=== PATIENT | female | born 1945 | race Caucasian/White ===

== ENCOUNTER → 2017-12-05 | Outpatient (REF) | payer MEDICARE | LOC: M LAB REF 17:29 | DX: E83.52 Hypercalcemia (principal) | CPT/HCPCS: 83970 ==

== ENCOUNTER → 2018-11-13 | Outpatient (REF) | payer MEDICARE ==
[~2018-11-13] MED LIST: ALBU17IN INH; ASCO25TA PO; ASPI1TAB PO; ATOR1TAB19 PO; BIOT50004 PO; CALCTAB6 PO; CENTTAB47 PO; CHLO25TA GT; CHLO25TA PO; FLUO20CA8 PO; HYDR25TAB PO; KRIL1000 PO; OSTETAB3 PO; SALI0.652; VENTAER INH; VITA500T PO; VITATAB11 PO; ZYRT10CA PO
== END ==
LOC: M LAB REF 13:45
PROVIDERS: ATTEND Otolaryngology
DX: D10.5 Benign neoplasm of other parts of oropharynx (principal)

== ENCOUNTER 2018-11-18 08:53 | Day surgery (SDC) | payer MEDICARE ==
[~2018-11-18] VITALS: Ht 172.7 cm; Wt 98.0 kg
[2018-11-18] MEDS ORDERED: NS 1,000 ML IV ONE (09:30)
[2018-11-18] MEDS ORDERED: PROPOFOL 500 MG/50 ML VIAL As Ordered ONE (10:26)
[2018-11-18] MEDS ORDERED: LIDOCAINE 2% INJ 100 MG/5 ML SDV (FOR ANES.) As Ordered ONE (10:26)
--- NOTE | 2018-11-18 10:29 | ROOR ---
Patient Name: Alexandra Paredes Procedure Date: 11/18/2018 10:06 AM Date of : 1945 Age: 73 Room: [facility] Gender: Female Note Status: Finalized Procedure: Colonoscopy Indications: High risk colon cancer surveillance: Personal history of colonic polyps, Last colonoscopy: September 2015 Providers: Andrew HENNESSY MD Referring MD: DHAVAL GRYA NP Requesting Provider: Medicines: Monitored Anesthesia Care Complications: No immediate complications. Procedure: Pre-Anesthesia Assessment: - The heart rate, respiratory rate, oxygen saturations, blood pressure, adequacy of pulmonary ventilation, and response to care were monitored throughout the procedure. The Colonoscope was introduced through the anus and advanced to the cecum, identified by appendiceal orifice and ileocecal valve. The colonoscopy was performed without difficulty. The patient tolerated the procedure well. The quality of the bowel preparation was good. Findings: The perianal and digital rectal examinations were normal. Three semi-sessile polyps were found in the splenic flexure and ascending colon. The polyps were 4 to 10 mm in size. These polyps were removed with a cold snare. Resection and retrieval were complete. Multiple medium-mouthed diverticula were found in the sigmoid colon. Small Internal Hemorrhoids. The exam was otherwise without abnormality on direct and retroflexion views. Impression: - Three 4 to 10 mm polyps at the splenic flexure and in the ascending colon, removed with a cold snare. Resected and retrieved. - Diverticulosis in the sigmoid colon. - Small Internal Hemorrhoids. - The examination was otherwise normal on direct and retroflexion views. Recommendation: - Repeat colonoscopy in 3 years for surveillance. Andrew Hennessy MD Andrew HENNESSY MD 11/18/2018 10:28:41 AM This report has been signed electronically. Number of Addenda: 0 Note Initiated On: 11/18/2018 10:06 AM Estimated Blood Loss: Estimated blood loss: none.
[2018-11-18 10:45] VITALS: BP 141/87
== END 2018-11-18 10:57 | disposition home or self-care (01) ==
LOC: M OPP 08:53
PROVIDERS: ATTEND Internal Medicine Gastroenterology
DX: D12.3 Benign neoplasm of transverse colon (principal); D12.2 Benign neoplasm of ascending colon; K57.30 Diverticulosis of large intestine without perforation or abscess without bleeding; K64.8 Other hemorrhoids; Z86.010 Personal history of colon polyps

== ENCOUNTER → 2021-11-24 | Outpatient (CLI) | payer MEDICARE ==
[~2021-11-24] MED LIST changes: +ACET650T61 PO; +ASCO250T20 PO; -ASCO25TA PO; -ASPI1TAB PO; +ASPI81TA26 PO; +CALC600T63 PO; -CALCTAB6 PO; +CHLO125TA PO; -CHLO25TA GT; +FLUO-96 PO; -FLUO20CA8 PO; +FLUO40CA PO; +HYDR-2541 PO; -HYDR25TAB PO; +LISI5TAB11 PO; +MULT-40 PO; +VITA-243 PO; -VITA500T PO; +VITATAB73 PO; +ZYRT10TA12 PO
== END ==
LOC: M LABSMTC 10:54
PROVIDERS: ATTEND Anesthesiology
DX: Z01.812 Encounter for preprocedural laboratory examination (principal); Z20.822 Contact with and (suspected) exposure to COVID-19

== ENCOUNTER 2021-11-29 08:02 | Day surgery (SDC) | payer MEDICARE ==
[~2021-11-29] VITALS: Ht 172.7 cm; Wt 97.1 kg
[~2021-11-29 08:02] MED LIST changes: +NS 1,000 ML IV ONE
[2021-11-29] MEDS ORDERED: propofoL 200 MG/20 ML VIAL As Ordered ONE ×2 (08:33→09:40)
[2021-11-29] MEDS ORDERED: LIDOCAINE 2% 100MG/5ML SDV (FOR ANES.) As Ordered ONE (08:33)
[2021-11-29] MEDS ORDERED: ESMOLOL INJ 100MG/10ML VIAL As Ordered ONE (09:17)
[2021-11-29] MEDS ORDERED: PHENYLephrine 500MCG 5ML (100MCG/ML) SYRINGE As Ordered ONE (09:47)
[2021-11-29 10:13] VITALS: BP 128/83
== END 2021-11-29 10:26 | disposition home or self-care (01) ==
LOC: M OPP 08:02
PROVIDERS: ATTEND Internal Medicine Gastroenterology
DX: D12.3 Benign neoplasm of transverse colon (principal); D12.0 Benign neoplasm of cecum; K57.30 Diverticulosis of large intestine without perforation or abscess without bleeding; Z86.010 Personal history of colon polyps
CPT/HCPCS: 45385; 88305; J2370

== ENCOUNTER → 2022-10-19 | Outpatient (CLI) | payer MEDICARE ==
[~2022-10-19] MED LIST changes: +E-Z-GAS II EFFERVESCENT PACKET (SODIUM BICARB./CITRIC ACID/SIMETHICONE) As Ordered ONE; +E-Z-HD 98% w/w 340GM SUSP BTL As Ordered ONE; +E-Z-PAQUE 96% w/w SUSP 176GM BTL As Ordered ONE; +ISOVUE-370 76% 100ML VIAL As Ordered ONE; -NS 1,000 ML IV ONE
== END ==
LOC: M RAD 09:26
PROVIDERS: ATTEND Otolaryngology
DX: R13.10 Dysphagia, unspecified (principal)
CPT/HCPCS: 70491; Q9967

== ENCOUNTER → 2022-11-14 | Outpatient (CLI) | payer MEDICARE ==
[~2022-11-14] MED LIST changes: -ISOVUE-370 76% 100ML VIAL As Ordered ONE
== END ==
LOC: M RAD 09:06
PROVIDERS: ATTEND Otolaryngology
DX: R13.10 Dysphagia, unspecified (principal); K44.9 Diaphragmatic hernia without obstruction or gangrene

== ENCOUNTER 2025-07-05 08:51 | Day surgery (SDC) | payer MEDICARE ==
[~2025-07-05] VITALS: Ht 175.3 cm; Wt 98.4 kg
[~2025-07-05 08:51] MED LIST changes: -BIOT50004 PO; +BIOT5CAP8 PO; +BUPR75TA5 PO; -E-Z-GAS II EFFERVESCENT PACKET (SODIUM BICARB./CITRIC ACID/SIMETHICONE) As Ordered ONE; -E-Z-HD 98% w/w 340GM SUSP BTL As Ordered ONE; -E-Z-PAQUE 96% w/w SUSP 176GM BTL As Ordered ONE; +ELIQ5TAB PO; +FURO20TA2 PO; +METO1TAB7 PO; +SPIR-10 PO
[2025-07-05] MEDS ORDERED: LIDOCAINE 2% 100 MG/5 ML SDV (FOR ANES.) As Ordered ONE (09:33)
[2025-07-05] MEDS ORDERED: GLYCOPYRROLATE INJ 0.2 MG/ML 2 ML VIAL As Ordered ONE (09:33)
[2025-07-05 09:59] VITALS: TEMP 98.1
[2025-07-05 10:18] VITALS: BP 118/78; O2SAT 94
== END 2025-07-05 10:30 | disposition home or self-care (01) ==
LOC: M OPP 08:51
PROVIDERS: ATTEND Internal Medicine Gastroenterology
DX: K63.5 Polyp of colon (principal); K62.1 Rectal polyp; K57.30 Diverticulosis of large intestine without perforation or abscess without bleeding; K64.8 Other hemorrhoids; Z86.0101 Personal history of adenomatous and serrated colon polyps; Z88.8 Allergy status to other drugs, medicaments and biological substances; Z91.048 Other nonmedicinal substance allergy status; Z79.01 Long term (current) use of anticoagulants; Z79.899 Other long term (current) drug therapy; J45.909 Unspecified asthma, uncomplicated; Z87.891 Personal history of nicotine dependence
CPT/HCPCS: 45385; 88305; J1596